=== PATIENT | female | born 1950 | race Caucasian/White ===

== ENCOUNTER 2019-07-28 07:12 | Day surgery (SDC) | payer MEDICARE ==
[2019-07-22 16:29] VITALS: BMI 24.0
[~2019-07-28 07:12] MED LIST: DEXAMETHASONE SOD PHOSPHATE 10 MG/ML 1 ML VIAL IV ONE; LACTATED RINGERS 1,000 ML IV SCH; ONDANSETRON 4 MG/2 ML VIAL IVP ONE
[2019-07-28 07:36] VITALS: TEMP 97.9
[2019-07-28] MEDS ORDERED: LACTATED RINGERS 1,000 ML IV ONE (07:36)
[2019-07-28] MEDS ORDERED: PROPOFOL 10 MG/ML 20 ML VIAL IV ONE (08:41)
--- NOTE | 2019-07-28 09:03 | P.PCN ---
Date of Procedure: 07/28/19 Procedure(s) Performed: BRIEF HISTORY: Patient is a 68-year-old pleasant white female scheduled for an elective colonoscopy as a part of value should of intermittent rectal bleeding for the last few weeks duration. He was especially worse in the last 1 week. She is scheduled for colonoscopy to evaluate further. PROCEDURE PERFORMED: Colonoscopy with snare polyp. PREOPERATIVE DIAGNOSIS: Intermittent rectal bleeding. IV sedation per Anesthesia. PROCEDURE: After informed consent was obtained, the patient, was brought into the endoscopy unit. IV sedation was administered by Anesthesia under continuous monitoring. Digital rectal examination was normal. Initially the Olympus CF-160 flexible video colonoscope was then inserted in the rectum, gradually advanced into the cecum without any difficulty. Careful examination was performed as the scope was gradually being withdrawn. Ileocecal valve and the appendiceal orifice were visualized and appeared normal. There was a 5-6 mm millimeters polyp on the ileocecal valve that was removed by snare polypectomy. Prep was excellent. Mucosa of the cecum, ascending colon, transverse colon, descending colon, sigmoid colon, and rectum appeared normal. Retroflexion was performed in the rectum and grade 2 internal were seen. The patient tolerated the procedure well. IMPRESSION: 5-6 mm polyp at the ileocecal valve status post snare polypectomy Grade 2 internal hemorrhoids RECOMMENDATIONS: Findings of this examination were discussed with the patientas well as her family. She was advised to be a high-fiber diet and fiber supplements a regular basis and avoid straining and constipation. She can have a repeat surveillance colonoscopy in 5 years from now because of colon polyps.
[2019-07-28 09:10] VITALS: RESP 16
[2019-07-28 10:14] VITALS: BP 110/68; PULSE 80
== END 2019-07-28 10:00 | disposition home or self-care (01) ==
LOC: ORWHC2ENDO 07:12
PROVIDERS: ATTEND Internal Medicine Gastroenterology
DX: K63.5 Polyp of colon (principal); K64.1 Second degree hemorrhoids; I10 Essential (primary) hypertension; E78.5 Hyperlipidemia, unspecified; E07.9 Disorder of thyroid, unspecified; Z88.0 Allergy status to penicillin; Z88.6 Allergy status to analgesic agent; Z79.890 Hormone replacement therapy; Z79.899 Other long term (current) drug therapy
CPT/HCPCS: 88305; 45385; J2704

== ENCOUNTER → 2020-01-26 | Outpatient (CLI) | payer MEDICARE ==
--- NOTE | 2020-01-27 09:47 | CT ---
EXAMINATION TYPE: CT abdomen pelvis w con DATE OF EXAM: 01/26/2020 COMPARISON: None INDICATION: abdominal pain, a early satiety DLP: 875 mGycm, Automated exposure control for dose reduction was used. CONTRAST: 100 mL of Isovue 300. Study performed with Oral Contrast TECHNIQUE: Axial images were obtained from above the diaphragm to the pubic rami in the axial plane a t 5 mm thick sections. Reconstructed images are reviewed on the computer in the coronal plane. FINDINGS: Limited CT sections are obtained the lung bases. The lung bases are clear. CT ABDOMEN: Liver: Normal Spleen: Normal Pancreas: Normal Adrenal glands: The adrenal glands are normal. Gallbladder: Gallstones are suspected within the gallbladder. Kidneys: No masses are evident. No hydronephrosis is present. No cysts are present. Delayed images were obtained through the kidneys, which remain unremarkable. Aorta: Vascular calcification is within the aorta. Inferior vena cava: Normal. CT PELVIS: Oral contrast extends to the distal colon there are some loops of bowel incompletely distended or lac k oral contrast limiting their evaluation. Stomach is visualized appears normal. Appendix: Normal as visualized. Urinary bladder: Normal. Genitourinary structures: Uterus appears normal. A left 2.1 and 1.4 cm cyst. Present. The right adnex a appears unremarkable. Osseous structures: No suspicious lytic or sclerotic lesions. Scoliosis is present. Lymphadenopathy: There is a 1.0 cm right inguinal lymph node. No iliac chain or obturator canal adeno jet is evident. No suspicious periaortic or retrocaval adenopathy is evident. No retrocrural enlarg ed adenopathy is present. IMPRESSIONS: 1. Cholelithiasis. 2. Left ovarian cysts. This could be further evaluated with ultrasound. 3. 1.0 cm right inguinal lymph node.
== END | disposition home or self-care (01) ==
LOC: RADCTMAIN 16:15 → EEVIPCON 18:00
PROVIDERS: ATTEND Family Medicine
DX: K80.20 Calculus of gallbladder without cholecystitis without obstruction (principal); N83.202 Unspecified ovarian cyst, left side
CPT/HCPCS: 74177; Q9967

== ENCOUNTER → 2020-02-11 | Outpatient (CLI) | payer MEDICARE ==
--- NOTE | 2020-02-11 19:34 | NM ---
EXAMINATION TYPE: NM hepatobiliary w EF DATE OF EXAM: 02/11/2020 COMPARISON: CT abdomen pelvis 01/26/2020 HISTORY: Gallbladder disease. TECHNIQUE: After the intravenous administration of 4.28 mCi Tc 99m Mebrofenin hepatobiliary scintigra phy is performed. Immediate images post injection. FINDINGS: There is satisfactory initial accumulation of tracer by the liver. The gallbladder is visualized wit hin 30 minutes. The small bowel activity is noted within 10 minutes. At one hour 8 ounces of oral e nsure plus is given to mimic CCK and gallbladder ejection fraction is calculated at 89 %, in the norm al range. Therefore there is no scintigraphic evidence of cystic or common bile duct obstruction , a cute or chronic cholecystitis, or biliary dyskinesia. IMPRESSION: Exam is within normal limits.
== END | disposition home or self-care (01) ==
LOC: RADNMMAIN 12:56
PROVIDERS: ATTEND Family Medicine
DX: K82.8 Other specified diseases of gallbladder (principal); N83.202 Unspecified ovarian cyst, left side
CPT/HCPCS: 78226; A9537

== ENCOUNTER → 2020-02-16 | Outpatient (CLI) | payer MEDICARE ==
--- NOTE | 2020-02-17 06:41 | US ---
EXAMINATION TYPE: US pelvic complete DATE OF EXAM: 02/16/2020 COMPARISON: CT abdomen and pelvis January 25, 2010 CLINICAL HISTORY: N83.202 L ovarian. F/U to CT. Autistic patient. TECHNIQUE: Transabdominal (TA). Transabdominal sonographic images of the pelvis were acquired. Date of LMP: EXAM MEASUREMENTS: Uterus: 5.1 x 1.7 x 2.6 cm Endometrial Stripe: 0.3 cm Right Ovary: 1.6 x 1.4 x 1.3 cm Left Ovary: 2.7 x 2.4 x 2.2 cm 1. Uterus: Anteverted wnl 2. Endometrium: wnl 3. Right Ovary: wnl 4. Left Ovary: 1.8 x 1.6 x 1.7cm cyst 5. Bilateral Adnexa: wnl 6. Posterior cul-de-sac: Cannot exclude trace Anteverted small size uterus corresponds to patient's age. No suspicious thickening of endometrial st ripe. No significant free fluid. Both ovaries identified and small in size correlating with patient's age. Within the left ovary there is a 1.8 cm thin-walled cyst without suspicious thickened septa or solid nodularity. Scanning right groin shows benign subcentimeter lymph node with retained fatty hilum towards the end of study. IMPRESSION: There is 1.8 cm incidental benign thin-walled right ovarian cyst confirmed.
== END | disposition home or self-care (01) ==
LOC: RADUSWWP 15:53
PROVIDERS: ATTEND Family Medicine
DX: N83.201 Unspecified ovarian cyst, right side (principal)
CPT/HCPCS: 76856